=== PATIENT | male | born 1930 | race Caucasian/White ===

== ENCOUNTER → 2017-11-20 | Outpatient (CLI) | payer MEDICARE ==
[~2017-11-20] MED LIST: IOPAMIDOL 370 MG/ML 200 ML INFUS..BTL INJ ONE; SODIUM CHLORIDE 0.9% 100 ML 100 ML ONE
[2017-11-20 14:03] LABS: BLOOD UREA NITROGEN 22 mg/dL (7-26); BUN/CREATININE RATIO 27 (6-25); CREATININE, SERUM 0.83 mg/dL (0.72-1.25); EST GLOMERULAR FILTRATION RATE > 60 ML/MIN (60-)
--- NOTE | 2017-11-21 15:34 | Diagnostic Imaging Report ---
Exam: Neck CTA History: Evaluate carotid stenosis Comparison studies:None Technique: Axial images were obtained from the thoracic inlet. Coronal and sagittal images reconstructed from the axial data. 3-D volume rendered images reformatted from the axial source data. Additional automated stenosis calculations were performed on a separate workstation by the radiologist. Dose modulation, iterative reconstruction, and/or weight based adjustment of the mA/kV was utilized to reduce the radiation dose to as low as reasonably achievable. Intravenous contrast: 100 cc of Omnipaque 300. If present, stenosis is calculated utilizing the NASCET method which calculates the degree of stenosis with reference to the normal lumen of the carotid artery distal to the stenosis. Findings: Aortic arch and major vessels: Moderate scattered calcified plaque throughout the arch, bilateral subclavian arteries, right brachiocephalic trunk and at the left common carotid artery origin without significant stenosis. Right carotid artery: Scattered calcified plaque at the origin and throughout the right common carotid artery without significant stenosis. Moderate calcified plaque at the cervical carotid bifurcation which extends into the carotid bulb with approximately 30-40% stenosis at the carotid bulb. Mild scattered hard plaque in the distal right ICA segment with less than 20% stenosis. Scattered calcified plaque in the cavernous and paraophthalmic ICA segments without significant stenosis. Left carotid artery: Moderate scattered hard plaque throughout the common carotid artery with severe hard plaque in the distal segment just proximal to the carotid bifurcation with there is high-grade (approximately 75-80 %) stenosis. Moderate calcified plaque at the cervical carotid bifurcation, carotid bulb and ICA origin with no hemodynamically significant stenosis at the carotid bulb and approximately 30% stenosis in the proximal left ICA segment 1.5 cm distal to the cervical bifurcation. Left ICA is mildly tortuous and there is mild nonstenotic hard plaque in the distal segment. Calcified plaque in the cavernous and paraophthalmic ICA segments do not result in significant stenosis. Vertebral arteries: Patent bilaterally. At least mild stenosis at the right vertebral artery origin due to calcified plaque (true degree stenosis cannot adequately be determined due to attenuation artifact from dense contrast in the overlying veins and "blooming" artifact from calcified plaque). Nonstenotic calcified plaque at the left vertebral artery origin. Mild calcified atherosclerosis in the left V3 segment without significant stenosis. Calcified plaque at the dural insertions result in mild stenosis bilaterally. Moderate calcified atherosclerosis in the proximal V4 segments bilaterally which result in drain degrees of mild to moderate stenosis (up to 50%) bilaterally. Spine: Moderate degenerative changes at the C1-C2 articulation with multilevel degeneration the cervical thoracic spine, worse/moderate at T1-T2. No significant canal stenosis. Advanced multilevel facet arthrosis. Multilevel uncovertebral facet arthrosis result in multilevel foraminal stenosis (moderate right at C3-C4, right C4-C5, moderate left at C5-C6 and mild/moderate bilaterally at C6-C7). Incidental findings: Hypodensity millimeter right thyroid lobe nodule. Bilateral intraocular lens replacements. Median sternotomy wires related to previous cardiothoracic surgery. IMPRESSION: 1. Moderate or sclerosis without a chronic plaques as described. 2. Approximately 30-40% stenosis at the right carotid bulb. 3. High-grade (\\R\\75-80 %) stenosis in the distal left common carotid artery just proximal to the bifurcation. No (0%) hemodynamically significant stenosis at the left carotid bulb. Approximately 30% stenosis at the left ICA origin. 4. At least mild stenosis at the right vertebral artery origin and moderate (up to 50%) stenosis in the intracranial, intradural V4 segments of the vertebral arteries bilaterally. Signed by: Dr. Thuan Walker M.D. on 11/21/2017 3:31 PM
== END ==
LOC: CT 12:57
PROVIDERS: ATTEND Thoracic Surgery (Cardiothoracic Vascular Surgery)
DX: I65.29 Occlusion and stenosis of unspecified carotid artery (principal)
CPT/HCPCS: 36415; 70498; 82565; 84520; Q9967